=== PATIENT | male | born 1945 | race Caucasian/White ===

== ENCOUNTER 2020-02-22 09:30 | Outpatient (RCR) | payer MEDICARE, OTHER, SELFPAY ==
[2020-02-22 09:46] LABS: Abs Immature Grans 0.15 10^3/uL (0.0-0.06); Absolute Basophil Count 0.13 10^3/uL (0.0-0.2); Absolute Eosinophil Count 0.64 10^3/uL (0.0-0.7); Absolute Lymphocyte Count 2.88 10^3/uL (1.2-3.4); Absolute Monocyte Count 1.02 10^3/uL (0.1-0.8); Absolute Neutrophil Count 8.27 10^3/uL (1.2-6.7); Eosinophils % 4.9; HCT 35.1 % (40.0-50.0); HGB 10.8 g/dL (13.5-17.5); Immature Grans % 1.1; MCH 25.5 pg (27.0-33.0); MCHC 30.8 % (32.0-36.0); MPV 8.5 fL (8.0-11.0); Monocytes % 7.8; Neutrophils % 63.2; Nucleated RBC 0 %; Platelet Count 474 10^3/uL (130-400); RBC 4.23 10^6/uL (4.36-5.78); RDW 16.8 % (11.8-14.1); RDW-SD 50.9 fL; WBC 13.09 10^3/uL (4.4-10.8)
[2020-02-22] MEDS: Normal Saline Flush 10 ML SYR IVP (10:18)
[2020-02-22 10:21] LABS: ALT 34 U/L (16-63); AST 41 U/L (15-37); Albumin 2.5 g/dL (3.4-5.0); Alkaline Phosphatase 206 U/L (46-116); Anion Gap 9.9 mmol/L (3-11); BUN 25 mg/dL (7-18); Bilirubin, Total 0.3 mg/dL (0.2-1.0); CO2 22.1 mmol/L (21.0-32.0); CREATININE 1.74 mg/dL (0.70-1.30); Calcium 9.1 mg/dL (8.5-10.1); Chloride 105 mmol/L (98-107); Estimated GFR 38.76 (mL/min/1.73m2); Glucose 147 mg/dL (74-106); Potassium 4.1 mmol/L (3.5-5.1); Sodium 137 mmol/L (136-145); T4 7.3 ug/mL (4.7-13.3)
== END 2020-02-22 23:59 | disposition home or self-care (01) ==
LOC: INF 09:30
PROVIDERS: PCP Internal Medicine; Visit Provider Internal Medicine Hematology & Oncology
DX: D64.9 Anemia, unspecified (principal); C18.9 Malignant neoplasm of colon, unspecified; C78.7 Secondary malignant neoplasm of liver and intrahepatic bile duct; E06.4 Drug-induced thyroiditis; Z45.2 Encounter for adjustment and management of vascular access device
CPT/HCPCS: 36592; 80053; 84436; 84443; 85025

== ENCOUNTER 2020-02-22 11:42 | Emergency (ER) | payer MEDICARE, OTHER, SELFPAY ==
[2020-02-22] VITALS (20 sets, daily range): BP systolic 86–149; BP diastolic 59–83; PULSE 85–104; RESP 20; TEMP 36.5; O2SAT 97–99
[2020-02-22 13:06] LABS: Lipase 235 U/L (73-393)
--- NOTE | 2020-02-22 13:19 | DI.CT_ITS ---
EXAM: CT ABDOMEN PELVIS WO CLINICAL HISTORY: R sided pain, colon ct, illeostomy. TECHNIQUE: Imaging Protocol: Axial computed tomography images with coronal and sagittal reformatted images were created and reviewed. COMPARISON: No exams were available for comparison FINDINGS: ABDOMEN: Visualized lung bases: There concerning nodules in both lung bases and there is a right pleural effus ion. No left pleural effusion. There is a small amount of ascites in the abdomen pelvis. Liver is hypodense implying steatosis and liver appears cirrhotic and prominent in size. There is tierney ggestion of a possible lesion versus fatty parenchymal sparing in the in medial aspect of the right l obe which measures 3 x 2.8 centimetres. There is a calcified gallstone measuring approximate 8 x 6 millimeters. Gallbladder is not distended and there is no gallbladder wall edema. The common bile duct is not dilated. Pancreas appears unre markable. Pancreatic duct is not dilated. Spleen size is upper normal. There is some perisplenic f luid. Slightly prominent lymph nodes are noted in the mesentery. Right adrenal gland is unremarkabl e. Mild thickening of the genu of the left adrenal gland is noted. The abdominal aorta is not enlar ged. No significant para-aortic adenopathy. No significant focal renal findings. No hydronephrosis nor hydroureter. Urinary bladder is not dist ended. However, there is a right inguinal hernia which contains part of the right side of the anteri or wall of the urinary bladder which is beyond the internal inguinal ring. Anterior abdominal wall exhibits midline surgery and also right of center ostomy site with some strea nikolay in the subcutaneous fat at this level. There has been partial colectomy. Visualized colon is c ollapsed. PELVIS: The prostate gland is not enlarged. Urinary bladder is not distended. Pelvic ureters are not dilate d. Is moderate amount of ascites in the pelvis. Appendix is surgically absent (subtotal colectomy). With there is no intrapelvic or inguinal adenopathy. Bone windows reveal no lytic nor blastic osseous lesions. No fractures. IMPRESSION: 1. There is evidence of previous partial colectomy and right-sided ostomy.. Also right-sided anastom osis. The presence of ascites may imply that there is an anastomotic leak. There does not appear to be free air within the peritoneal cavity. There is no bowel obstruction. 2. Hepatomegaly and hepatic cirrhosis noted. This may also contribute to the ascites here. No splen omegaly. There are multiple slightly prominent lymph nodes in the mesentery. 3. Possible 3 x 3 centimeter hepatic lesion difficult to characterize on this noninfused study. Anot her possibility is that this may just represent an area of focal fatty parenchymal sparing. 4. Cholelithiasis. No evidence of obvious acute cholecystitis nor dilatation of the biliary tree, esther th intra and extrahepatic. 5. Right inguinal hernia which contains anterior right side of the urinary bladder. This part of the bladder is beyond the level of the internal inguinal ring. 6. Small-moderate size right pleural effusion. 7. There also concerning nodules in the visualized lung bases. Given the history here these may be m etastatic. Report called to emergency room provider RADIATION DOSE DELIVERED: 1,096.08mGy.cm Total DLP DATA REPOSITORY: All CT scans at this facility are submitted to the National Radiology Data Registry (NRDR) Dose Index Registry (DIR) with the [employer] (A[employer]). RADIATION OPTIMIZATION: All CT scans at this facility use at least one of these dose optimization te chniques: automated exposure control; mA and/or kV adjustment per patient size (includes targeted exa ms where dose is matched to clinical indication); or iterative reconstruction.
--- NOTE | 2020-02-22 13:27 | DI.RAD_ITS ---
EXAM: XR CHEST 2V PA LATERAL CLINICAL HISTORY: RUQ pain. TECHNIQUE: 2D digital imaging was performed. COMPARISON: No exams were available for comparison FINDINGS: heart size is normal. The mediastinum is not widened. The distal tip of right PICC line is in the SVC . There are no infiltrates nor pleural effusions. No pneumothorax. IMPRESSION: No acute pulmonary findings. PICC line in satisfactory position. DATA REPOSITORY: RADIATION DOSE DELIVERED:
--- NOTE | 2020-02-22 13:30 | ED.GENADUL_ITS ---
Discharge Plan Disposition Patient Disposition: HOME Condition: Stable Discharge Details Clinical Impression: Pleural effusion, Abdominal pain, Acute UTI Primary Care Provider: Woody Willams ED Provider: Mario Brown Home Meds and New Rx's Prescriptions: New oxycodone 5 mg capsule 5 mg PO TID PRNQty: 8 RF: 0 cephalexin [Keflex] 500 mg capsule 500 mg PO BID Qty: 14 RF: 0 Continued aspirin 81 mg Tablet,Delayed Release (Dr/Ec) 81 mg PO DAILY RF: 0 acetaminophen 500 mg Tablet 1,000 mg PO Q6H PRNRF: 0 ibuprofen 200 mg Tablet 200 mg PO Q6H PRNRF: 0 omeprazole 20 mg capsule,delayed release(DR/EC) 20 mg PO BID RF: 0 lovastatin 20 mg tablet 20 mg PO DAILY RF: 0 Discharge Instructions Instructions: Urinary Tract Infection in Men (ED), Pleural Effusion (ED), Abdominal Pain (ED) Additional Instructions: Keflex and oxycodone as directed. Oxycodone may cause drowsiness and/or constipation. While taking a narcotic medication you may also want to take an [id number] stool softener. Plenty of fluids to avoid dehydration. As we discussed, I had a call placed to the [facility] surgical oncology team that performed your surgery in December. You have requested discharge prior to them calling me back. Please watch for new or worsening symptoms and return to the ER for any concerns. Please contact your surgical oncology team tomorrow to discuss your CAT scan results. Also, I personally spoke with Lara at the [facility], you are scheduled to be seen on March 03 but she will not fit you in sooner if needed, simply call her office. Discharge Data Discharge Date/Time-TO BE ENTERED AT DEPARTURE: 02/22/20 15:44 Medical Decision Making 74-year-old gentleman with diagnosis of colon cancer, status post colectomy now with ileostomy, presenting at the request of his cancer center for further evaluation. He has right sided abdominal discomfort and per evaluation earlier today decreased breath sounds in the right lower lobe. He denies any active abdominal pain whatsoever. Denies fever, cough, shortness of breath, chest pain, nausea, vomiting, black tarry stools or bright red blood stools. Clinically he appears well, nontoxic. His initial blood pressure in triage was 86/59 with a pulse of 104 however it certainly does not reflect what I am seeing during my evaluation. I requested that his vitals are rechecked, his blood pressure is now normotensive and his heart rate is in the 80s. Laboratory values including CBC, CMP already obtained earlier today. Will obtain lipase, urinalysis, CT of abdomen and pelvis with contrast and a chest x-ray. Patient is comfortable with this plan. I did discuss work-up with patient's son as well. He did voice concern regarding his renal function and IV contrast. Per hour protocol here at this facility with a creatinine less than 2 we would t ypically proceed with IV contrast administration. I will give him a liter of IV fluid. Patient later voices concern regarding the IV contrast as well. Will obtain CT without IV contrast. I reviewed his CBC and CMP from earlier in the day. Urinalysis here reveals 20- 50 white blood cells, negative for epithelial cells, moderate bacteria. Lipase of 235. Labs from earlier in the day reveal mild nonspecific leukocytosis, mild anemia, and GFR in the 30s. I do believe given his immunosuppressed state, treating his 20-white blood cells in his urine has a urinary tract infection is perfectly reasonable. CT does reveal right pleural effusion. Ascites is present. Also appears to be nodules in the lung bases. Radiology does state that ascites may imply that there is anastomosis leak. Clinically I do not believe this to be the case however I have requested that the images be pushed to [facility] so I can speak with his surgical oncology team regarding the images. I was able to speak with Lara and E [employer] at the [facility]. We discussed the patient's work-up here in the ER including laboratory values from earlier in the day, his x-ray and CT findings here in the ER. She does understand I am awaiting a callback from [facility] surgical oncology team for review of the CT imaging. She was able to confirm the patient is taking Keytruda, first dose given 10 days ago. She is scheduled to see him again in the office on March 03 but is happy to see him sooner for reevaluation and additional prescription for oxycodone. I will provide the patient with a prescription for a today here in the ER and I will also initiate Keflex therapy given he is immunocompromised and has white cells in his urine. She believes to be a reasonable plan and is happy to follow him as an outpatient. She has no additional recommendations while he is here in the ER. I was able to discuss my conversation that I had with Lara myrna with both the patient and his son. They both understand that I am awaiting a call back from the surgical team at [facility]. Patient remains asymptomatic here in the ER. Patient and his son did not want to stay in the ER any longer and are requesting discharge. They understand that once surgery calls me back his overall disposition may change. They state that they live alf between here and [facility] and will simply go to [facility] if the CT is abnormal per the [facility] team. Patient will be discharged with a short-term prescription of oxycodone and a prescription for Keflex for his urinary tract infection. It should be noted that at the time of my shift change, 4 PM, I had still not received a call back from the [facility] surgical team regarding the CT imaging of this patient. Medical Records Medical records reviewed: Yes I reviewed the patient's medical records. Imaging Data Radiologic Study: Attestation: I personally reviewed and interpreted this imaging study as follows: Imaging: X-Ray Radiologist's impression: Chest negative Radiologic Study #2: Attestation: I personally reviewed and interpreted this imaging study as follows: Imaging: CT Scan Radiologist's impression: CT abdomen and pelvis without contrast There is evidence of previous partial colectomy and right-sided ostomy.. Also right-sided anastomosis. The presence of ascites may imply that there is an anastomotic leak. There does not appear to be free air within the peritoneal cavity. There is no bowel obstruction. Hepatomegaly and hepatic cirrhosis noted. This may also contribute to the ascites here. No splenomegaly. There are multiple slightly prominent lymph nodes in the mesentery. Possible 3 x 3 centimeter hepatic lesion difficult to characterize on this noninfused study. Another possibility is that this may just represent an area of focal fatty parenchymal sparing. Cholelithiasis. No evidence of obvious acute cholecystitis nor dilatation of the biliary tree, both intra and extrahepatic. Right inguinal hernia which contains anterior right side of the urinary bladder. This part of the bladder is beyond the level of the internal inguinal ring. Small-moderate size right pleural effusion. There also concerning nodules in the visualized lung bases. Given the history here these may be metastatic. Lab Data Lab results reviewed: Yes I reviewed the patient's lab results. Lab results narrative: 02/22/20 13:35 Urine - Reflex from Ua Urine Culture - Pending Laboratory Tests Range/Units 02/22/20 02/22/20 02/22/20 09:34 12:16 12:16 WBC Cancelled RBC Cancelled Hgb Cancelled Hct Cancelled MCV Cancelled MCH Cancelled MCHC Cancelled RDW Cancelled Plt Count Cancelled MPV Cancelled Immature Gran % Cancelled Neutrophils % Cancelled Band Neutrophils % Cancelled Lymphocytes % Cancelled Atypical Lymphs % Cancelled Monocytes % Cancelled Eosinophils % Cancelled Basophils % Cancelled Metamyelocytes % Cancelled Myelocytes % Cancelled Promyelocytes % Cancelled Other Cells % Cancelled Nucleated RBC % Cancelled Absolute Neutrophils Cancelled Absolute Lymphocytes Cancelled Absolute Monocytes Cancelled Absolute Eosinophils Cancelled Absolute Basophils Cancelled RBC Morphology Cancelled Polychromasia Cancelled Hypochromasia Cancelled Poikilocytosis Cancelled Basophilic Stippling Cancelled Anisocytosis Cancelled Microcytosis Cancelled Macrocytosis Cancelled Spherocytes Cancelled Tear Drop Cells Cancelled Ovalocytes Cancelled Stomatocytes Cancelled [place] Bodies Cancelled Ana Lilia Cells/Echinocytes Cancelled Acanthocytes (Spur) Cancelled Schistocytes Cancelled Sodium Cancelled Potassium Cancelled Chloride Cancelled Carbon Dioxide Cancelled Anion Gap Cancelled BUN Cancelled Creatinine Cancelled Estimated GFR/1.73 m2 Cancelled Glucose Cancelled Calcium Cancelled Total Bilirubin Cancelled AST Cancelled ALT Cancelled Alkaline Phosphatase Cancelled Total Protein Cancelled Albumin Cancelled Lipase (73-393) U/L 235 Urine Color (Yellow) Urine Clarity (Clear) Urine pH (5-8) Ur Specific [place] (1.005-1.025) Urine Protein (Negative) mg/dL Urine Ketones (Negative) mg/dL Urine Blood (Negative) Urine Nitrite (Negative) Urine Bilirubin (Negative) Urine Urobilinogen (Up TO 0.2) EU/dL Ur Leukocyte Esterase (Negative) Urine RBC (0-2) HPF Urine WBC (0-5) HPF Ur Epithelial Cells (Negative) HPF Urine Crystals (Negative) HPF Urine Bacteria (Negative) HPF Urine Casts (Negative) LPF Urine Mucus (Negative) Urine Other (Negative) Ur Culture Indicated? Urine Glucose (Negative) mg/dL Range/Units 02/22/20 13:35 WBC RBC Hgb Hct MCV MCH MCHC RDW Plt Count MPV Immature Gran % Neutrophils % Band Neutrophils % Lymphocytes % Atypical Lymphs % Monocytes % Eosinophils % Basophils % Metamyelocytes % Myelocytes % Promyelocytes % Other Cells % Nucleated RBC % Absolute Neutrophils Absolute Lymphocytes Absolute Monocytes Absolute Eosinophils Absolute Basophils RBC Morphology Polychromasia Hypochromasia Poikilocytosis Basophilic Stippling Anisocytosis Microcytosis Macrocytosis Spherocytes Tear Drop Cells Ovalocytes Stomatocytes [place] Bodies [place] Cells/Echinocytes Acanthocytes (Spur) Schistocytes Sodium Potassium Chloride Carbon Dioxide Anion Gap BUN Creatinine Estimated GFR/1.73 m2 Glucose Calcium Total Bilirubin AST ALT Alkaline Phosphatase Total Protein Albumin Lipase (73-393) U/L Urine Color (Yellow) Yellow Urine Clarity (Clear) Sl cloudy Urine pH (5-8) 5.5 Ur Specific [place] (1.005-1.025) 1.025 Urine Protein (Negative) mg/dL 30 H Urine Ketones (Negative) mg/dL Negative Urine Blood (Negative) Negative Urine Nitrite (Negative) Negative Urine Bilirubin (Negative) Negative Urine Urobilinogen (Up TO 0.2) EU/dL 0.2 Ur Leukocyte Esterase (Negative) Negative Urine RBC (0-2) HPF 10-20 H Urine WBC (0-5) HPF 20-50 H Ur Epithelial Cells (Negative) HPF Negative Urine Crystals (Negative) HPF Negative Urine Bacteria (Negative) HPF Moderate Urine Casts (Negative) LPF Comment Urine Mucus (Negative) Moderate Urine Other (Negative) Few renal Ur Culture Indicated? Yes Urine Glucose (Negative) mg/dL Negative HPI General Mode of arrival: ambulatory . Date/Time Provider Initiated Documentation: 02/22/20 11:56 . Limitations to Documentation: no limitations . Information obtained by: patient . HPI Narrative: This is a 74-year-old gentleman with past medical history that includes colon cancer, colectomy on January 06 at [facility], now with ileostomy. He states that he has had some intermittent abdominal pain since the colectomy, was taking oxycodone for this. No longer has any oxycodone has noticed increased pain on his right side. He had his most recent treatment of Keytruda 10 days ago, was scheduled to be seen at the [facility] today for ongoing outpatient evaluation. He had laboratory values drawn this morning and upon his evaluation today was sent to the ER for further evaluation. Patient has right-sided abdominal pain, worse in the right upper quadrant as well as per the provider at the cancer center, decreased breath sounds right lower lobe. Primary concern is complication with recent surgery versus right lower lobe pneumonia, versus reaction to recent Keytruda administration. Patient denies any fever, cough, chest pain, nausea, vomiting, dysuria, black tarry stools or bright red blood in his ileostomy bag. He states that his abdominal pain seems to be worse at night which causes him difficulty sleeping. When he did have oxycodone he was taking them primarily at bed. Related Data Home Medications Medication Instructions Recorded Confirmed acetaminophen 1,000 mg PO Q6H PRN 02/22/20 02/22/20 aspirin 81 mg PO DAILY 02/22/20 02/22/20 cephalexin [Keflex] 500 mg PO BID #14 cap 02/22/20 ibuprofen 200 mg PO Q6H PRN 02/22/20 02/22/20 lovastatin 20 mg PO DAILY 02/22/20 02/22/20 omeprazole 20 mg PO BID 02/22/20 02/22/20 oxycodone 5 mg PO TID PRN #8 cap 02/22/20 Previous Rx's Medication Instructions Recorded cephalexin [Keflex] 500 mg PO BID #14 cap 02/22/20 oxycodone 5 mg PO TID PRN #8 cap 02/22/20 Allergies Allergy/AdvReac Type Severity Reaction Status Date / Time famotidine [From Pepcid] AdvReac Unverified 02/22/20 11:55 General Stated Complaint: Abd Prob KELSY: 3 Review of Systems Constitutional Constitutional: Denies fatigue, Denies fever(s) and Denies headache(s) ENT Ears, Nose, Mouth, and Throat: Denies headache(s) and Denies neck pain Cardiovascular Cardiovascular: Denies chest pain and Denies dyspnea Respiratory Respiratory: Denies cough and Denies dyspnea Gastrointestinal Gastrointestinal: Reports abdominal pain, Denies melena, Denies hematochezia, Denies nausea and Denies vomiting Genitourinary Genitourinary: Denies dysuria Musculoskeletal Musculoskeletal: Denies back pain and Denies neck pain Integumentary/Breasts Skin/Breast: Denies rash Neurologic Neurologic: Denies headache(s) Endocrine Endocrine: Denies fatigue Hematologic/Lymphatic Hematologic/Lymphatic: Denies easy bleeding and Denies easy bruising [facility] Social History Smoking/Tobacco Use Status: Never Smoking risk assessment performed?: Yes Alcohol Intake: former Drug use: Never Substance use type: does not use Do you feel safe at home: Yes Exam Const General: cooperative, healthy appearing, comfortable and no acute distress Orientation: alert, awake and oriented x3 HENMT Head: normal to inspection, normocephalic and atraumatic Face and sinus: normal facial exam Mouth: moist mucous membranes Throat: posterior oropharynx normal Eyes General: appearance normal, both eyes and all related structures Conjunctivae: conjunctivae normal Sclera: sclerae normal Neck Neck: normal visual inspection, full ROM, no meningeal signs, trachea midline and supple Resp Effort & Inspection: normal respiratory effort and able to speak in complete sentences Auscultation: diminished lung sounds bilaterally in the lower lung sharma Cardio Rate: regular rate Rhythm: regular rhythm GI Inspection: other (Stoma present, appears normal. Nontender. Brown stool draining) Palpation: soft, not firm, no guarding, no pulsatile masses and nontender Auscultation: normal bowel sounds Back/Spine/Pelvis Back: No back tenderness Skin General skin exam: no rashes or lesions noted Neuro General: patient alert, patient awake, moves all extremities and no focal motor deficits Cognition: normal cognition Speech: speech normal Gait: normal gait Sensory Exam: no sensory deficits noted Extrem General: normal to inspection and full ROM Psych Appearance: grossly normal Mental Status: mental status grossly normal Course Vital Signs Vital signs: Vital Signs Temperature 36.5 C 02/22/20 11:50 Pulse 104 H 02/22/20 11:50 Respiratory Rate 02/22/20 11:50 Blood Pressure 86/59 L 02/22/20 11:50 Pulse Oximetry 98 02/22/20 11:50 Temperature 36.5 C 02/22/20 11:50 Temperature Source Skin 02/22/20 11:50 Pulse 104 H 02/22/20 11:50 Respiratory Rate 02/22/20 11:50 Respiratory Effort Non-Labored 02/22/20 11:55 Blood Pressure 86/59 L 02/22/20 11:50 Blood Pressure Position Sitting 02/22/20 11:50 Pulse Oximetry 98 11/30/20 11:50 Oxygen Delivery Method Room Air 02/22/20 11:50 Oxygen Flow Rate 0 02/22/20 11:50 Pain Level 8 02/22/20 11:50 Lab/Test Results Lab/Test Results: Laboratory Tests Range/Units 02/22/20 02/22/20 02/22/20 09:34 12:16 12:16 WBC Cancelled RBC Cancelled Hgb Cancelled Hct Cancelled MCV Cancelled MCH Cancelled MCHC Cancelled RDW Cancelled Plt Count Cancelled MPV Cancelled Immature Gran % Cancelled Neutrophils % Cancelled Band Neutrophils % Cancelled Lymphocytes % Cancelled Atypical Lymphs % Cancelled Monocytes % Cancelled Eosinophils % Cancelled Basophils % Cancelled Metamyelocytes % Cancelled Myelocytes % Cancelled Promyelocytes % Cancelled Other Cells % Cancelled Nucleated RBC % Cancelled Absolute Neutrophils Cancelled Absolute Lymphocytes Cancelled Absolute Monocytes Cancelled Absolute Eosinophils Cancelled Absolute Basophils Cancelled RBC Morphology Cancelled Polychromasia Cancelled Hypochromasia Cancelled Poikilocytosis Cancelled Basophilic Stippling Cancelled Anisocytosis Cancelled Microcytosis Cancelled Macrocytosis Cancelled Spherocytes Cancelled Tear Drop Cells Cancelled Ovalocytes Cancelled Stomatocytes Cancelled [place] Bodies Cancelled Ana Lilia Cells/Echinocytes Cancelled Acanthocytes (Spur) Cancelled Schistocytes Cancelled Sodium Cancelled Potassium Cancelled Chloride Cancelled Carbon Dioxide Cancelled Anion Gap Cancelled BUN Cancelled Creatinine Cancelled Estimated GFR/1.73 m2 Cancelled Glucose Cancelled Calcium Cancelled Total Bilirubin Cancelled AST Cancelled ALT Cancelled Alkaline Phosphatase Cancelled Total Protein Cancelled Albumin Cancelled Lipase (73-393) U/L 235
[2020-02-22 13:41] LABS: Bilirubin Negative (Negative); Blood Negative (Negative); Clarity Sl Cloudy (Clear); Glucose Negative (Negative); Ketones Negative (Negative); Leukocyte Esterase Negative (Negative); Nitrite Negative (Negative); Specific Gravity 1.025 (1.005-1.025); Urobilinogen 0.2 EU/dL (Up TO 0.2); pH 5.5 (5-8)
[2020-02-22] MEDS: Normal Saline 1,000 ML 1000 ML IV (13:50)
[2020-02-22 14:01] LABS: Epithelial Cells Negative HPF (Negative); Other Cells Few Renal (Negative); WBC 20-50 HPF (0-5)
[2020-02-22 14:02] LABS: Bacteria Moderate HPF (Negative); C & S Indicated? Yes; Crystals Negative HPF (Negative); Mucus Moderate (Negative)
[2020-02-22] MEDS: Heparin 500 UNITS/5 ML SYRINGE IVP (15:33)
== END 2020-02-22 15:44 | disposition home or self-care (01) ==
PROVIDERS: Emergency Provider Physician Assistant; PCP Internal Medicine
DX: J90 Pleural effusion, not elsewhere classified (principal); N39.0 Urinary tract infection, site not specified; R10.11 Right upper quadrant pain; C18.9 Malignant neoplasm of colon, unspecified; Z79.899 Other long term (current) drug therapy; Z93.2 Ileostomy status
CPT/HCPCS: 36415; 36592; 80053; 83690; 96360; 96361; 99284; 71046; 74176; 81003; 81015; 84436; 84443; 85025; 87086; 99285

== ENCOUNTER 2020-03-14 01:26 | Outpatient (CLI) | payer MEDICARE, OTHER, SELFPAY ==
--- NOTE | 2020-03-14 13:14 | DI.CT_ITS ---
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 TECHNIQUE: Imaging Protocol: Axial computed tomography images with coronal and sagittal reformatted images were created and reviewed COMPARISON: CT CT CHEST WO CONTRAST (GENERIC) from 01/03/[address] CHEST WO CONTRAST (GENERIC) from 01/03/[address] ABDOMEN PELVIS WO from 02/22/2020 FINDINGS: CHEST: Thyroid: Unremarkable as visualized. Tracheobronchial tree: Patent where visualized. Mediastinum and Marylou: There are enlarged mediastinal lymph nodes. The largest measures 1.4 cm. Thes e are unchanged compared to the CT scan of the chest from 01/03/2020. Pulmonary parenchyma: There are multiple pulmonary nodules again noted. Since the prior examination there has been interval increase in size of the pleural effusions. There is a large right and modera tely large left pleural effusion. Subjacent infiltrates are seen which may represent atelectasis or pneumonia. Catheters: There is an indwelling central venous catheter. The tip of the catheter is in good positi on at the cavoatrial junction no architectural distortion. Pleura: Please see the above section on the pulmonary parenchyma. Lymph nodes: Please see above. Aorta: Thoracic portion non-dilated. Heart: Not enlarged. Moderate coronary artery calcification. No pericardial effusion. Bones: Degenerative changes are seen in the spine. ABDOMEN: Liver: There is diffuse decreased attenuation of the liver consistent with fatty infiltration. There are again seen multiple hepatic masses most suggestive of metastatic disease. The largest is in the left lobe of the liver and measures 4.4 cm in maximum transverse diameter. It appears to have incre ased in size compared to the prior examination at which time it measured 3.6 cm. There has also been increase in size of the lesions seen in the anterior segment of the right lobe of the liver laterall y. It currently measures 3.6 cm compared with 2.8 cm. Gallbladder and biliary tract: Cholelithiasis. No biliary ductal dilatation. Pancreas: Normal density, no abnormal calcifications or inflammatory process. Spleen: Normal. Kidneys: Normal size, contour and axis. No radiodense stones or obstructive uropathy. No suspicious m asses. There is a cyst in the left kidney. Adrenal glands: Stable adrenal glands. There is nodularity of the left adrenal gland which is unchan ged. Aorta: Abdominal portion non-dilated. Atherosclerosis. Lymph nodes: Stable mildly enlarged upper abdominal lymph nodes. PELVIS: Bladder: Symmetric distention, no gross wall thickening. Bowel: No obstruction or bowel wall thickening. Normal appendix. Diverticulosis of the sigmoid colon but no evidence of acute diverticulitis. Status post right colectomy with the right abdominal wall o stomy. Peritoneal cavity: There is a large amount of abdominal ascites which has increased since the prior e xamination. There is nodularity seen in the mesentery and metastatic disease cannot be excluded. Bones: No suspicious lytic or sclerotic lesions are present. Reproductive organs: There is a mild enlargement of the prostate gland. Soft tissues: There are bilateral inguinal hernias. There is a large right inguinal hernia containin g ascitic fluid. IMPRESSION: 1. Since the prior examination there has been interval increase in size of the hepatic metastases. 2. Interval increase in size of the abdominal ascites. 3. Status post right colectomy with right abdominal wall ostomy. 4. Nodularity seen in the mesentery and metastatic disease cannot be excluded. 5. Multiple pulmonary nodules consistent with metastases. 6. Interval increase in size of the bilateral pleural effusions. Subjacent infiltrates which may rep resent atelectasis or pneumonia. RADIATION DOSE DELIVERED: 1,334.36mGy.cm Total DLP 1,334.36mGy.cm Total DLP DATA REPOSITORY: All CT scans at this facility are submitted to the National Radiology Data Registry (NRDR) Dose Index Registry (DIR) with the [employer] ([employer]). RADIATION OPTIMIZATION: All CT scans at this facility use at least one of these dose optimization te chniques: automated exposure control; mA and/or kV adjustment per patient size (includes targeted exa ms where dose is matched to clinical indication); or iterative reconstruction.
== END 2020-03-14 01:46 ==
PROVIDERS: PCP Internal Medicine; Visit Provider Nurse Practitioner Family
DX: C18.9 Malignant neoplasm of colon, unspecified (principal); C78.7 Secondary malignant neoplasm of liver and intrahepatic bile duct; Z90.49 Acquired absence of other specified parts of digestive tract; R91.8 Other nonspecific abnormal finding of lung field; J90 Pleural effusion, not elsewhere classified; D64.9 Anemia, unspecified; E06.4 Drug-induced thyroiditis
CPT/HCPCS: 36591; 71250; 80053; 74176; 83735; 85025

== ENCOUNTER 2020-03-24 02:27 | Outpatient (RCR) | payer MEDICARE, OTHER, SELFPAY ==
[2020-03-03] MEDS: Normal Saline Flush 10 ML SYR IVP (10:50)
[2020-03-03 11:09] LABS: Abs Immature Grans 0.17 10^3/uL (0.0-0.06); Absolute Basophil Count 0.14 10^3/uL (0.0-0.2); Absolute Monocyte Count 1.03 10^3/uL (0.1-0.8); Basophils % 0.9; Eosinophils % 5.1; HCT 36.8 % (40.0-50.0); HGB 11.3 g/dL (13.5-17.5); Immature Grans % 1.1; Lymphocytes % 20.7; MCH 25.3 pg (27.0-33.0); MCHC 30.7 % (32.0-36.0); MCV 82.3 fL (80-95); MPV 8.8 fL (8.0-11.0); Monocytes % 6.6; Neutrophils % 65.6; Nucleated RBC 0 %; RBC 4.47 10^6/uL (4.36-5.78); RDW 16.2 % (11.8-14.1); RDW-SD 48.9 fL; WBC 15.57 10^3/uL (4.4-10.8)
[2020-03-03 11:12] LABS: Absolute Eosinophil Count 0.79 10^3/uL (0.0-0.7); Absolute Lymphocyte Count 3.22 10^3/uL (1.2-3.4); Absolute Neutrophil Count 10.21 10^3/uL (1.2-6.7)
[2020-03-03 11:27] LABS: ALT 21 U/L (16-63); AST 38 U/L (15-37); Albumin 2.5 g/dL (3.4-5.0); Alkaline Phosphatase 243 U/L (46-116); Anion Gap 11.1 mmol/L (3-11); BUN 25 mg/dL (7-18); Bilirubin, Total 0.3 mg/dL (0.2-1.0); CO2 22.9 mmol/L (21.0-32.0); CREATININE 1.51 mg/dL (0.70-1.30); Calcium 9.7 mg/dL (8.5-10.1); Chloride 103 mmol/L (98-107); Estimated GFR 45.65 (mL/min/1.73m2); FREE T4 1.13 ng/dL (0.76-1.46); Glucose 147 mg/dL (74-106); Platelet Count 707 10^3/uL (130-400); Potassium 3.6 mmol/L (3.5-5.1); Sodium 137 mmol/L (136-145); TSH 1.89 uIU/mL (0.36-3.74)
[2020-03-03 11:28] LABS: Diff Comment PLT Morph Reviewed; Hypochromasia 2+
[2020-03-11] MEDS: Normal Saline Flush 10 ML SYR IVP (11:05)
[2020-03-11 11:30] LABS: Abs Immature Grans 0.23 10^3/uL (0.0-0.06); Absolute Lymphocyte Count 3.08 10^3/uL (1.2-3.4); Absolute Monocyte Count 1.25 10^3/uL (0.1-0.8); Absolute Neutrophil Count 13.17 10^3/uL (1.2-6.7); Basophils % 0.3; Eosinophils % 0.6; HCT 37.8 % (40.0-50.0); HGB 11.9 g/dL (13.5-17.5); Immature Grans % 1.3; Lymphocytes % 17.2; MCH 25.3 pg (27.0-33.0); MCHC 31.5 % (32.0-36.0); MCV 80.4 fL (80-95); MPV 8.5 fL (8.0-11.0); Neutrophils % 73.6; Nucleated RBC 0 %; Platelet Count 603 10^3/uL (130-400); RDW 16.2 % (11.8-14.1); RDW-SD 47.4 fL; WBC 17.89 10^3/uL (4.4-10.8)
[2020-03-11 11:31] LABS: Absolute Basophil Count 0.05 10^3/uL (0.0-0.2); Absolute Eosinophil Count 0.11 10^3/uL (0.0-0.7)
[2020-03-11 11:43] LABS: ALT 18 U/L (16-63); AST 38 U/L (15-37); Albumin 2.5 g/dL (3.4-5.0); Alkaline Phosphatase 250 U/L (46-116); Anion Gap 11.2 mmol/L (3-11); BUN 32 mg/dL (7-18); Bilirubin, Total 0.4 mg/dL (0.2-1.0); CO2 23.8 mmol/L (21.0-32.0); CREATININE 1.35 mg/dL (0.70-1.30); Calcium 9.7 mg/dL (8.5-10.1); Chloride 105 mmol/L (98-107); Estimated GFR 51.95 (mL/min/1.73m2); Glucose 124 mg/dL (74-106); Magnesium 1.7 mg/dL (1.8-2.4); Potassium 3.8 mmol/L (3.5-5.1); Sodium 140 mmol/L (136-145); Total Protein 7.1 g/dL (6.4-8.2)
[2020-03-14] MEDS: Normal Saline Flush 10 ML SYR IVP (09:18)
[2020-03-14 09:25] LABS: Abs Immature Grans 0.28 10^3/uL (0.0-0.06); Absolute Basophil Count 0.12 10^3/uL (0.0-0.2); Absolute Monocyte Count 1.32 10^3/uL (0.1-0.8); Absolute Neutrophil Count 12.75 10^3/uL (1.2-6.7); Basophils % 0.7; HCT 35.2 % (40.0-50.0); HGB 11.3 g/dL (13.5-17.5); Immature Grans % 1.6; Lymphocytes % 14.6; MCH 25.3 pg (27.0-33.0); MCHC 32.1 % (32.0-36.0); MCV 78.7 fL (80-95); MPV 8.8 fL (8.0-11.0); Monocytes % 7.5; Neutrophils % 72.6; Nucleated RBC 0 %; Platelet Count 579 10^3/uL (130-400); RBC 4.47 10^6/uL (4.36-5.78); RDW 16.3 % (11.8-14.1); RDW-SD 46.5 fL; WBC 17.56 10^3/uL (4.4-10.8)
[2020-03-14 09:27] LABS: Absolute Eosinophil Count 0.53 10^3/uL (0.0-0.7); Absolute Lymphocyte Count 2.56 10^3/uL (1.2-3.4)
[2020-03-14 09:40] LABS: ALT 20 U/L (16-63); AST 48 U/L (15-37); Alkaline Phosphatase 234 U/L (46-116); Anion Gap 9.1 mmol/L (3-11); BUN 31 mg/dL (7-18); Bilirubin, Total 0.4 mg/dL (0.2-1.0); CO2 23.9 mmol/L (21.0-32.0); CREATININE 1.54 mg/dL (0.70-1.30); Calcium 10.2 mg/dL (8.5-10.1); Chloride 102 mmol/L (98-107); Estimated GFR 44.63 (mL/min/1.73m2); Glucose 153 mg/dL (74-106); Magnesium 1.8 mg/dL (1.8-2.4); Potassium 3.7 mmol/L (3.5-5.1); Sodium 135 mmol/L (136-145)
[2020-03-24 09:26] LABS: Abs Immature Grans 0.34 10^3/uL (0.0-0.06); Absolute Neutrophil Count 17.59 10^3/uL (1.2-6.7); Basophils % 0.5; Eosinophils % 1.4; HCT 42.5 % (40.0-50.0); HGB 13.1 g/dL (13.5-17.5); Immature Grans % 1.5; MCH 24.4 pg (27.0-33.0); MCHC 30.8 % (32.0-36.0); MCV 79.1 fL (80-95); MPV 9.7 fL (8.0-11.0); Monocytes % 5.7; Neutrophils % 76.9; Nucleated RBC 0 %; RBC 5.37 10^6/uL (4.36-5.78); RDW 16.4 % (11.8-14.1); WBC 22.88 10^3/uL (4.4-10.8)
[2020-03-24 09:32] LABS: Absolute Basophil Count 0.11 10^3/uL (0.0-0.2); Absolute Eosinophil Count 0.32 10^3/uL (0.0-0.7)
[2020-03-24 09:41] LABS: Platelet Count 834 10^3/uL (130-400)
[2020-03-24 09:42] LABS: Anisocytosis 1+; Diff Comment PLT Morph Reviewed; Hypochromasia 2+; Microcytosis 2+; Polychromasia Present
[2020-03-24 09:52] LABS: ALT 23 U/L (16-63); AST 60 U/L (15-37); Albumin 2.3 g/dL (3.4-5.0); Alkaline Phosphatase 296 U/L (46-116); Anion Gap 13.1 mmol/L (3-11); BUN 56 mg/dL (7-18); Bilirubin, Total 0.4 mg/dL (0.2-1.0); CO2 21.9 mmol/L (21.0-32.0); CREATININE 2.39 mg/dL (0.70-1.30); Calcium 10.3 mg/dL (8.5-10.1); Chloride 99 mmol/L (98-107); Estimated GFR 26.87 (mL/min/1.73m2); Glucose 142 mg/dL (74-106); Sodium 134 mmol/L (136-145); TSH 3.22 uIU/mL (0.36-3.74); Total Protein 7.3 g/dL (6.4-8.2)
[2020-03-24 10:01] LABS: T4 8.9 ug/mL (4.7-13.3)
== END 2020-03-24 23:59 | disposition home or self-care (01) ==
LOC: INF 02:27
PROVIDERS: PCP Internal Medicine; Visit Provider Internal Medicine Hematology & Oncology
DX: D64.9 Anemia, unspecified (principal); E06.4 Drug-induced thyroiditis; C18.9 Malignant neoplasm of colon, unspecified; C78.7 Secondary malignant neoplasm of liver and intrahepatic bile duct
CPT/HCPCS: 36591; 80053; 86850; 86900; 86901; 83735; 84436; 84439; 84443; 85025

== ENCOUNTER 2020-03-31 01:52 | Outpatient (RCR) | payer MEDICARE, OTHER, SELFPAY | END 2020-04-24 23:59 | disposition home or self-care (01) | LOC: INF 01:52 | PROVIDERS: PCP Internal Medicine; Visit Provider Internal Medicine Hematology & Oncology ==